=== PATIENT | male | born 1960 | race Caucasian/White ===

== ENCOUNTER 2022-02-21 17:23 | Emergency (ER) | payer OTHER ==
[~2022-02-21] VITALS: Ht 154.9 cm; Wt 68.0 kg
--- NOTE | 2022-02-21 17:30 | NUR ---
CARRIE TERAN FROM [facility]RI[facility] STAFF AND RESIDENTS, VERVALIZING SI. PLACED ON BED, AWAKE ALERT RESPONDING TO QUESTIONS, DENIES SI 'ITS RIDICULOUS VERBALIZE.
--- NOTE | 2022-02-21 18:58 | NUR ---
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
--- NOTE | 2022-02-21 19:16 | NUR ---
BLOOD DRAWN AND SENT TO LAB
--- NOTE | 2022-02-21 19:25 | NUR ---
URINE SAMPLE SENT TO LAB
[2022-02-21 20:06] LABS: BILIRUBIN,URINE NEGATIVE (NEGATIVE); COLOR,URINE YELLOW (YELLOW); LEUKOCYTE ESTERASE ,URINE NEGATIVE (NEGATIVE); NITRITE, URINE NEGATIVE (NEGATIVE); PROTEIN,URINE NEGATIVE (NEGATIVE); UGLUCOSE NEGATIVE (NEGATIVE); UROBILINOGEN,URINE 0.2 EU/dL (0.2)
[2022-02-21 20:07] LABS: BASOPHILS % (AUTO) 0.4 % (0.0-2.0); HEMATOCRIT 41 % (39-51); HEMOGLOBIN 13.6 g/dL (13.5-17.5); LYMPHOCYTES # (AUTO) 2.3 K/uL (0.8-4.8); LYMPHOCYTES % (AUTO) 33.6 % (20.0-44.0); MEAN CORPUSCULAR HGB CONC 34 g/dl (31.0-36.0); MEAN CORPUSCULAR VOLUME 91 fL (80-96); MONOCYTES # (AUTO) 0.5 K/uL (0.1-1.30); MONOCYTES % (AUTO) 6.7 % (2.0-12.0); NEUTROPHILS # (AUTO) 4.1 K/uL (1.8-8.9); NEUTROPHILS % (AUTO) 58.3 % (43.0-81.0); PLATELET COUNT (AUTO) 155 K/uL (150-450); RED BLOOD CELL COUNT(AUTO) 4.44 MIL/uL (4.5-6.0)
[2022-02-21 20:16] LABS: BACTERIA,URINE Rare /HPF (None Seen); SQUAMOUS EPITHELIAL CELL,UR Few /HPF (None Seen); WBC,URINE 0-2 /HPF (0-3)
[2022-02-21 20:35] LABS: CALCIUM, SERUM 9.1 mg/dL (8.5-10.1); CARBON DIOXIDE 28 mmol/L (21-32); CHLORIDE 103 mmol/L (98-107); CREATININE 0.8 mg/dL (0.6-1.3); GLUCOSE 90 mg/dL (74-106); POTASSIUM 4.5 mmol/L (3.5-5.1); SODIUM SERUM 139 mmol/L (136-145); UREA NITROGEN, BLOOD 21 mg/dL (7-18)
[2022-02-21 20:41] LABS: ALANINE AMINOTRANSFERASE 20 U/L (12-78); ALBUMIN 4.2 g/dL (3.4-5.0); ALCOHOL, BLOOD < 3 mg/dL (0-0); ALKALINE PHOSPHATASE 57 U/L (46-116); ASPARTATE AMINOTRANSFERASE 26 U/L (15-37); BILIRUBIN,DIRECT 0.1 mg/dL (0.0-0.2); BILIRUBIN,TOTAL 0.4 mg/dL (0.2-1.0); TOTAL PROTEIN, SERUM 7.6 g/dL (6.4-8.2)
[2022-02-21 20:45] LABS: ACETAMINOPHEN 0 ug/ml (10-30)
--- NOTE | 2022-02-21 20:53 | NUR ---
SWAB FOR COVID19 SENT TO LAB
--- NOTE | 2022-02-22 02:45 | NUR ---
PROVIDED PT WITH WARM BLANKETS FOR COMFORT.
--- NOTE | 2022-02-22 02:54 | NUR ---
AVEL [facility] CRISIS TEAM ON THE WAY TO [facility]
[2022-02-22] MEDS ORDERED: DIVALPROEX SODIUM 125 MG CAP.SPRINK PO SCH (04:00)
[2022-02-22] MEDS ORDERED: QUETIAPINE FUMARATE 25 MG TABLET PO SCH (04:00)
[2022-02-22] MEDS ORDERED: VALPROIC ACID 250 MG/5 ML UDC ONE (04:14)
[2022-02-22] MEDS ORDERED: QUETIAPINE FUMARATE 25 MG TABLET ONE ×3 (04:14→17:50)
[2022-02-22] MEDS ORDERED: VALPROIC ACID 250 MG/5 ML UDC PO ONE (04:30)
--- NOTE | 2022-02-22 04:40 | NUR ---
AVEL [facility] TEAM AT PT'S BEDSIDE Addendum: 02/22/22 at 0442 by JULIO CESAR [facility] CRISIS TEAM AT PT'S BEDSIDE
--- NOTE | 2022-02-22 05:55 | NUR ---
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
--- NOTE | 2022-02-22 11:06 | NUR ---
Referrals: SW followed up with the [facility] that crisis clinican faxed to : [facility]: TEL: [phone] OPTION 4 FAX [phone] per intake clinicals still pending review and SW should call back at 1 pm. Noted [facility]:take [facility]([place]medicare/ tel:[phone] FAX:[phone]; Christiana from intake stated clinicals pending review ad will call SW back with update. [facility] (any age 13 and up) fax:[phone] tel:[phone] per intake they have no beds at this time. MARIA ISABEL refaxed clinicals to [facility] FAX:[phone] PHONE: as requested by their intake, [place]. [address], [place] [address] SW left call back number as [facility]. MARIA ISABEL refaxed clinicals to [facility] FAX:[phone] PHONE:[phone] as requestd by their intake. MARIA ISABEL faxed clinicals to [facility] tel: ;1 fax:[phone] MARIA ISABEL faxed clinicals to [facility] FAX: [phone] PHONE: [phone] MARIA ISABEL faxed clinicals to [facility] TEL: [phone] Intake SW called [facility] tel:[phone]; 4 FAX: [phone] no bed SW called [facility] Psych tel:[phone] fax: [phone] and no bed
--- NOTE | 2022-02-22 11:15 | NUR ---
PT SITTING UP AWAKE, RR EVEN & UNLABORED, CALM & COOPERATIVE NAD AT THIS TIME. WILL CONT TO MONITOR.
[2022-02-22] MEDS: QUETIAPINE FUMARATE 25 MG TABLET PO SCH ×2 (13:52→17:55)
--- NOTE | 2022-02-22 14:10 | NUR ---
SW received call from [facility] FAX:[phone] PHONE:[phone] asking for pt.'s weight. SW provided information as listed in EMR. Per intake, they will call back with update.
--- NOTE | 2022-02-22 14:59 | NUR ---
Referrals update: MARIA ISABEL [facility]: TEL: [phone] OPTION 4 FAX [phone] per intake they have no bed available. [facility] tel:[phone] FAX:[phone] per Bill from intake they are still reviewing and will call back with update. Per [facility] FAX:[phone] PHONE: intake, [place] they have no beds available. Per [facility] FAX:[phone] PHONE:[phone] the pt. has been clinically accepted however, they are pending availability and will call candida calderon be becomes available. Per [facility] tel: ;1 fax:[phone] the pt. is on their waitlist as they take [facility]. [facility]: [phone] PHONE: [phone] no beds available MARIA ISABEL faxed clinicals to [facility] TEL: [phone] Intake pt. was denied.
--- NOTE | 2022-02-22 15:39 | NUR ---
PT ASLEEP, EASILY AWAKEN BY VERBAL STIMULI, RR EVEN & UNLABORED. NAD NOTED AT THIS TIME. WILL CONT TO MONITOR.
--- NOTE | 2022-02-22 17:57 | NUR ---
PT SITTING UP, RR EVEN & UNLABORED. NAD NOTED AT THIS TIME. WILL CONT TO MONITOR.
--- NOTE | 2022-02-22 18:30 | NUR ---
PT IS "CLINICALLY APPROVED" PER [facility]. WAITING FOR BED TO BE AVAILABLE.
--- NOTE | 2022-02-23 07:15 | NUR ---
Received pt from [facility] PT ASLEEPY RESPIRATION SPONT AND EASY NO SOB
--- NOTE | 2022-02-23 09:12 | NUR ---
DR VERGARA AT BEDSIDE FOR EVAL
[2022-02-23] MEDS ORDERED: QUETIAPINE FUMARATE 25 MG TABLET ONE (09:16)
[2022-02-23] MEDS: QUETIAPINE FUMARATE 25 MG TABLET PO SCH (09:21)
--- NOTE | 2022-02-23 09:23 | NUR ---
FOOD TRAY PROVIDED
--- NOTE | 2022-02-23 09:55 | NUR ---
[facility] CALLED FOR TRANSPORT ETA 30 MINS.
--- NOTE | 2022-02-23 10:10 | NUR ---
SPOKE WITH FACILITY STATED THAT PATIENT'S BED WAS GIVEN AWAY. PT WILL NOT HAVE A BED FOR 10 DAYS.
--- NOTE | 2022-02-23 10:16 | NUR ---
Treating Plant Operator Note MARIA ISABEL contacted Guicho from [facility] to relay information that the 5150 hold was lifted and pt. was ready to return. MARIA ISABEL infomed Guicho that pt. was calm and cooperative, pt. has been compliant with medication and tx, and has had no bxs episodes. MARIA ISABEL faxed clinicals to [facility] ([id number] [place] [address], ) MARIA ISABEL contacted Josue in the ER to support with arranging transport to [facility].
--- NOTE | 2022-02-23 10:32 | NUR ---
CALLED CM FOR ASSISTANCE.
--- NOTE | 2022-02-23 10:43 | NUR ---
CM CALLED [place] [facility] [phone] (ADMISSIONS), DUE TO COVID ISOLATIONS PATIENT LOST THE BED. BUT SHE WILL REFER THE PATIENT TO [facility] FACILITIES. CLINICALS FAXED TO [phone]. INFORMED [facility] PATIENT IS STILL CURRENTLY ON A BEDHOLD AND IS ILLEGAL TO NOT TAKE THE PATIENT BACK. INSTRUCTED ER TO PLACE TRANSPORTATION ON WILL CALL.
--- NOTE | 2022-02-23 12:17 | NUR ---
[facility] CALLED FOR TRANSPORT ETA 1400
[2022-02-23 12:23] VITALS: BP 119/82
--- NOTE | 2022-02-23 12:25 | NUR ---
REPORT GIVEN TO AIXA AT [facility] CONV. FOR JOE
--- NOTE | 2022-02-23 13:54 | NUR ---
PICKED UP BY [facility] UNIT[facility]310 IN STABLE CONDITION
== END 2022-02-23 14:25 ==
LOC: ER 17:39
DX: R45.851 Suicidal ideations (principal); F29 Unspecified psychosis not due to a substance or known physiological condition; M79.602 Pain in left arm; M79.601 Pain in right arm; F20.9 Schizophrenia, unspecified; K21.9 Gastro-esophageal reflux disease without esophagitis; R13.10 Dysphagia, unspecified; Z86.16 Personal history of COVID-19; E78.5 Hyperlipidemia, unspecified; Z20.822 Contact with and (suspected) exposure to COVID-19
CPT/HCPCS: 99285; 85025; 80048; 80076; 81001; 36415; 87426; 80143; 80320; 80307; C9803; G0480